=== PATIENT | female | born 1945 | race Caucasian/White ===

== ENCOUNTER 2016-05-03 07:32 | Day surgery (SDC) | payer MEDICARE ==
[~2016-05-03] VITALS: Ht 171.4 cm; Wt 122.7 kg
[2016-05-03] VITALS (13 sets, daily range): BP systolic 154–183; BP diastolic 75–106; PULSE 65–76
[2016-05-03 08:09] LABS: CALCIUM 9.4 mg/dL (8.4-10.2); CREATININE, serum 1.36 mg/dL (0.52-1.25); HEMATOCRIT 38.3 % (37.0-47.0); MEAN CELL VOLUME 98 fl (80.0-100.0); MEAN CORPUSCULAR HEMOGLOBIN 31 pg (27.0-31.0); MEAN CORPUSCULAR HGB CONC 31 g/dl (33.0-37.0); MEAN PLATELET VOLUME 10.9 fl (7.4-10.4); PLATELET COUNT 148 K/mm3 (130-400); RED BLOOD COUNT 3.93 M/mm3 (4.10-5.30); REDCELL DISTRIBUTION WIDTH-CV 13.1 % (11.5-14.5)
[2016-05-03 08:12] LABS: PROTHROMBIN TIME 11.2 SECONDS (9.7-12.8)
[2016-05-03] MEDS ORDERED: PRILOSEC 20MG20 MG PO (08:24)
[2016-05-03] MEDS ORDERED: SINGULAIR 110 MG/TAB PO (08:25)
[2016-05-03] MEDS ORDERED: SYNTHROID0.125 MG/T PO (08:26)
[2016-05-03] MEDS ORDERED: GLUCOPHAGE500 MG/TAB PO ×2 (08:26→08:27)
[2016-05-03] MEDS ORDERED: COZAAR 25MG25 MG/TAB PO (08:29)
[2016-05-03] MEDS ORDERED: LIPITOR 10MG10 MG PO (08:31)
[2016-05-03] MEDS ORDERED: CELEBREX 200MG200 MG PO (08:32)
[2016-05-03] MEDS ORDERED: LYRICA 100MG C100 M1 PO (08:34)
[2016-05-03] MEDS ORDERED: IMODIUM 2MG CAPS2 MG PO (08:34)
[2016-05-03] MEDS ORDERED: FLONASE NASAL S16 GM NS (08:35)
[2016-05-03] MEDS ORDERED: ATROVENT I0.2 MG/1 M IH (08:36)
[2016-05-03] MEDS ORDERED: RT ADVAIR 528 DISKUS IH (08:36)
[2016-05-03] MEDS ORDERED: CLARITIN 1010 MG/TAB PO (08:37)
[2016-05-03] MEDS ORDERED: PROAIR HFA0.09 MG/AC IH (08:37)
[2016-05-03] MEDS ORDERED: INFANTS AQU400 IU/ML PO (08:38)
[2016-05-03] MEDS ORDERED: ASPIRIN 81M81 MG/TA2 PO (08:38)
[2016-05-03] MEDS ORDERED: CALCIUM 600MG+D1 TAB PO (08:39)
[2016-05-03] MEDS ORDERED: B-12 500 MCG PO (08:40)
[2016-05-03] MEDS ORDERED: MULTI VITAMINS1 TAB PO (08:41)
[2016-05-03] MEDS ORDERED: FISH OIL1000 MG PO (08:41)
[2016-05-03] MEDS ORDERED: NORCO 325 MG-51 TAB PO (08:49)
[2016-05-03] MEDS ORDERED: FLEXERIL 1010 MG/TAB PO (08:49)
== END 2016-05-03 15:07 | disposition short-term general hospital (02) ==
LOC: COL.RAD 07:32
PROVIDERS: Internal Medicine Cardiovascular Disease
DX: I25.10 Atherosclerotic heart disease of native coronary artery without angina pectoris (principal); I25.82 Chronic total occlusion of coronary artery; R06.09 Other forms of dyspnea; I27.2 Other secondary pulmonary hypertension; E11.9 Type 2 diabetes mellitus without complications; G47.30 Sleep apnea, unspecified; E03.9 Hypothyroidism, unspecified; N18.9 Chronic kidney disease, unspecified; I50.9 Heart failure, unspecified; Z87.891 Personal history of nicotine dependence; K21.9 Gastro-esophageal reflux disease without esophagitis; M79.7 Fibromyalgia; D64.9 Anemia, unspecified
CPT/HCPCS: C1725; C1760; C1769; C1887; J0583; J2250; J3010; Q9967

== ENCOUNTER → 2016-07-25 | Outpatient (CLI) | payer MEDICARE ==
[~2016-07-25] MED LIST: ASPIRIN 81M81 MG/TA2 PO; ATROVENT I0.2 MG/1 M IH; B-12 500 MCG PO; CALCIUM 600MG+D1 TAB PO; CELEBREX 200MG200 MG PO; CLARITIN 1010 MG/TAB PO; COZAAR 25MG25 MG/TAB PO; FISH OIL1000 MG PO; FLEXERIL 1010 MG/TAB PO; FLONASE NASAL S16 GM NS; GLUCOPHAGE500 MG/TAB PO; IMODIUM 2MG CAPS2 MG PO; INFANTS AQU400 IU/ML PO; LIPITOR 10MG10 MG PO; LYRICA 100MG C100 M1 PO; MULTI VITAMINS1 TAB PO; NORCO 325 MG-51 TAB PO; PRILOSEC 20MG20 MG PO; PROAIR HFA0.09 MG/AC IH; RT ADVAIR 528 DISKUS IH; SINGULAIR 110 MG/TAB PO; SYNTHROID0.125 MG/T PO
== END ==
LOC: COL.PUL 09:58
DX: J45.40 Moderate persistent asthma, uncomplicated (principal)
CPT/HCPCS: J7674

== ENCOUNTER → 2017-10-02 | Outpatient (CLI) | payer MEDICARE | LOC: MC.RAD 09:58 | DX: Z12.31 Encounter for screening mammogram for malignant neoplasm of breast (principal) ==

== ENCOUNTER 2021-01-20 10:10 | Observation (INO) | payer MEDICARE ==
[~2021-01-20] VITALS: Ht 165.1 cm; Wt 130.0 kg
[2021-01-20] VITALS (9 sets, daily range): BP systolic 149–168; BP diastolic 61–90; PULSE 84–89; TEMP 97.9–98.3
[2021-01-20 10:44] LABS: COLLECTION METHOD CLEAN CATCH
[2021-01-20 10:47] LABS: BASO % 0.2 % (0.0-2.0); EOS % 0.1 % (0-4.0); GRAN # 9.5 K/mm3 (1.4-6.5); GRAN % 80.3 % (42.2-75.2); HEMATOCRIT 43.6 % (37.0-47.0); HEMOGLOBIN 14.3 g/dl (12.5-16.0); LYMPH # 1.3 K/mm3 (1.2-3.4); MEAN CELL VOLUME 92 fl (80.0-100.0); MEAN CORPUSCULAR HEMOGLOBIN 30 pg (27.0-31.0); MEAN CORPUSCULAR HGB CONC 33 g/dl (33.0-37.0); MEAN PLATELET VOLUME 10.9 fl (7.4-10.4); MONO # 0.9 K/mm3 (0.1-0.6); MONO % 7.7 % (1.7-9.3); PLATELET COUNT 171 K/mm3 (130-400); RED BLOOD COUNT 4.73 M/mm3 (4.10-5.30); REDCELL DISTRIBUTION WIDTH-CV 13.2 % (11.5-14.5)
[2021-01-20 10:53] LABS: AMORPHOUS CRYSTAL Present (NOT PRESENT); BUDDING YEAST Present (NOT PRESENT); PH 5 (5-8); SQUAMOUS EPITHELIAL None Seen /hpf (0-10); URINE APPEARANCE Cloudy (CLEAR/HAZY); URINE BACTERIA None Seen (NONE SEEN); URINE BILIRUBIN Negative (NEGATIVE); URINE BLOOD 3+ (NEGATIVE); URINE COLOR Red (YELLOW); URINE GLUCOSE 3+ (NEGATIVE); URINE KETONE Trace (NEGATIVE); URINE LEUKOCYTE ESTERASE Negative (NEGATIVE); URINE NITRATE Negative (NEGATIVE); URINE PROTEIN(semi-quant) 2+ (NEGATIVE); URINE RBC >50 /hpf (0-2); URINE UROBILINOGEN Negative (NEGATIVE)
[2021-01-20 11:02] LABS: ALBUMIN 4.1 gm/dL (3.4-4.8); BILIRUBIN,TOTAL 1.3 mg/dL (0.2-1.2); C-REACTIVE PROTEIN 1.55 mg/dL (0.00-0.50); CALCIUM 9.8 mg/dL (8.4-10.2); CREATININE, serum 2.42 mg/dL (0.57-1.11); POTASSIUM 4.2 mmol/L (3.5-4.5); TOTAL PROTEIN 7.6 gm/dL (6.2-8.1)
--- NOTE | 2021-01-20 20:00 | NUR ---
PT IN BED, IS ALERT AND ORIENTED X4. HAS IVF TO LEFT FOREARM INFUSING WITHOUT PROBLEM. VOIDING BLOODY URINE. REPORTS BACK PAIN, DENIES NEED FOR PAIN MEDS AT THIS TIME. WEARING OXYGEN AT 2L/NC.
[2021-01-20] MEDS ORDERED: UROCIT-K 1010 MEQ PO (20:56)
[2021-01-20] MEDS ORDERED: PROTONIX 40MG T40 MG PO (20:56)
[2021-01-20] MEDS ORDERED: XYZAL5 MG PO (20:57)
[2021-01-20] MEDS ORDERED: LEVEMIR FLEX100 U/ML SQ (20:58)
[2021-01-20] MEDS ORDERED: PLAVIX 75MG TAB75 MG PO (21:02)
[2021-01-20] MEDS ORDERED: LOPRESSOR 225 MG/TAB PO (21:02)
[2021-01-20] MEDS ORDERED: LASIX 40MG TABL40 MG PO (21:03)
[2021-01-20] MEDS ORDERED: TRADJENTA5 MG PO (21:04)
--- NOTE | 2021-01-20 22:30 | NUR ---
LEVEMIR INSULIN GIVEN PER DR QUIROZ ORDER. PT DROWSY.
--- NOTE | 2021-01-20 23:58 | NUR ---
PT UP TO BATHROOM, VOIDS DARK RED/BROWN URINE. EMPTIES COLOSTOMY AT THIS TIME ALSO. BACK TO BED, REPORTS PAIN TO BACK AND VAG AREA, MEDICATED WITH OXYCODONE 5MG PO NOW.
[2021-01-21 00:02] VITALS: BP 123/47; PULSE 91; TEMP 98
[2021-01-21 03:48] VITALS: BP 149/59; PULSE 78; TEMP 98.3
--- NOTE | 2021-01-21 06:20 | NUR ---
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 DOES OWN COLOSTOMY CARES.
[2021-01-21 06:37] LABS: MEAN CORPUSCULAR HGB CONC 32 g/dl (33.0-37.0); MEAN PLATELET VOLUME 11.2 fl (7.4-10.4); PLATELET COUNT 102 K/mm3 (130-400); RED BLOOD COUNT 3.48 M/mm3 (4.10-5.30); REDCELL DISTRIBUTION WIDTH-CV 13.6 % (11.5-14.5)
[2021-01-21 07:05] VITALS: BP 105/48; PULSE 78; TEMP 99
[2021-01-21 07:09] LABS: CALCIUM 8.1 mg/dL (8.4-10.2); CREATININE, serum 1.73 mg/dL (0.57-1.11); POTASSIUM 3.6 mmol/L (3.5-4.5)
[2021-01-21 07:50] LABS: HEMATOCRIT 33.6 % (37.0-47.0); HEMOGLOBIN 10.8 g/dl (12.5-16.0); MEAN CELL VOLUME 97 fl (80.0-100.0); MEAN CORPUSCULAR HEMOGLOBIN 31 pg (27.0-31.0)
--- NOTE | 2021-01-21 10:00 | NUR ---
Patient alert and oriented, answers questions appropriately. See assessment. Voiding adequate amounts. C/o urinary burning, no frequency or hesitancy. Urine corral color with occasional clots noted. No c/o flank pain. Encouraged fluid intake. No c/o at this time.
--- NOTE | 2021-01-21 11:40 | NUR ---
Discharge instructions reviewed with patient and daughter, verbalized understanding. Discharged via wheelchair to auto/home with family at 1130.
== END 2021-01-21 11:30 | disposition home or self-care (01) ==
LOC: COL.ER 10:10 → SURG 12:41
PROVIDERS: Nurse Practitioner; ADMIT Urology
DX: N20.1 Calculus of ureter (principal); Z85.828 Personal history of other malignant neoplasm of skin; I13.0 Hypertensive heart and chronic kidney disease with heart failure and stage 1 through stage 4 chronic kidney disease, or unspecified chronic kidney disease; E11.22 Type 2 diabetes mellitus with diabetic chronic kidney disease; I50.9 Heart failure, unspecified; E78.5 Hyperlipidemia, unspecified; I25.10 Atherosclerotic heart disease of native coronary artery without angina pectoris; J45.909 Unspecified asthma, uncomplicated; G47.33 Obstructive sleep apnea (adult) (pediatric); K21.9 Gastro-esophageal reflux disease without esophagitis; M19.90 Unspecified osteoarthritis, unspecified site; G89.29 Other chronic pain; F32.A Depression, unspecified; M79.7 Fibromyalgia; N18.9 Chronic kidney disease, unspecified; E03.9 Hypothyroidism, unspecified; Z79.84 Long term (current) use of oral hypoglycemic drugs; Z79.899 Other long term (current) drug therapy; Z79.4 Long term (current) use of insulin
CPT/HCPCS: C1758; C1769; C2617; G0378; J0690; J0696; J1170; J1815; J2405; J2704; J3010; J7030; Q9967

== ENCOUNTER → 2021-02-19 | Outpatient (CLI) | payer MEDICARE ==
[~2021-02-19] MED LIST changes: +LASIX 40MG TABL40 MG PO; +LEVEMIR FLEX100 U/ML SQ; +LOPRESSOR 225 MG/TAB PO; +PLAVIX 75MG TAB75 MG PO; +PROTONIX 40MG T40 MG PO; +TRADJENTA5 MG PO; +UROCIT-K 1010 MEQ PO; +XYZAL5 MG PO
== END ==
LOC: DIA.ED
DX: E11.22 Type 2 diabetes mellitus with diabetic chronic kidney disease (principal); N18.9 Chronic kidney disease, unspecified; Z79.4 Long term (current) use of insulin; E78.5 Hyperlipidemia, unspecified; I10 Essential (primary) hypertension
CPT/HCPCS: G0108